=== PATIENT | male | born 1955 | race Caucasian/White ===

== ENCOUNTER → 2018-04-25 | Outpatient (CLI) | payer OTHER ==
[~2018-04-25] VITALS: Ht 180.3 cm; Wt 108.9 kg
--- NOTE | ~2018-04-25 | P ---
[facility] [place] [address] PROCEDURE REPORT Name: CONG BURTON Room #: REG [facility]#: [id number] Admission: 04/25/18 Attend Phys: Cm Patton MD Discharge: Date of : 59 Report #: [id number] THIS REPORT FOR: //name// CC: Cm Patton Physician staff GABBY ESPINAL BRIEF HISTORY: The patient is a 63-year-old male with a history of colon polyps for surveillance colonoscopy. PREOPERATIVE DIAGNOSIS: History of colon polyps. POSTOPERATIVE DIAGNOSIS: Mild diverticulosis coli. MEDICATIONS: Deep sedation with propofol per Anesthesia. SPECIMEN: None. ESTIMATED BLOOD LOSS: None. PROCEDURE: Colonoscopy to cecum and terminal ileum. FINDINGS: Prior to propofol sedation, procedure of colonoscopy discussed with the patient as well potential risks and its complications. He indicates he understands and desires to proceed. DESCRIPTION OF PROCEDURE: With the patient in left lateral decubitus position, digital examination was completed, which revealed no abnormalities. Subsequently, the Olympus video colonoscope was introduced in the rectum and advanced under direct vision to the cecum. Done with minimal difficulty. The cecum was identified by the ileocecal valve and the appendiceal orifice. I was able to visualize the distal segment of terminal ileum, which was inspected and noted to be unremarkable. At that point, scope was slowly withdrawn and careful circumferential views obtained, including retroflexing the scope in the ascending colon. Upon slow withdrawal of the scope, the prep was noted to be excellent. The mucosa was within normal limits, normal vascular pattern, normal light reflex. As we withdrew the scope, no neoplastic lesions were seen. Mucosa was within normal limits and no abnormalities were noted until we reached the left colon, in particular the descending colon and sigmoid colon. A couple of small diverticula were seen. There is no endoscopic evidence of diverticulitis. Scope was withdrawn. The patient tolerated the procedure well. CONDITION OF THE PATIENT UPON DISCHARGE: Following procedure, the patient drowsy, arousable and conversant and will be discharged home when fully ambulatory. INSTRUCTIONS TO THE PATIENT AND THE FAMILY AT TIME OF DISCHARGE: No neoplastic [facility] [address] [place] [address] PROCEDURE REPORT Name: CONG BURTON Room #: REG [facility] Remy#: [id number] Admission: 04/25/18 Attend Phys: Cm Patton MD Discharge: Date of : 59 Report #: [id number] lesions seen today. He had 1 small adenoma in the past and there is no family history. We will have him return in 10 years for a screening colonoscopy. <ELECTRONICALLY SIGNED> By: Cm Patton MD 04/25/18 [id number] [id number] Cm Patton MD /nt
== END | disposition home or self-care (01) ==
LOC: GI 06:40
DX: Z12.11 Encounter for screening for malignant neoplasm of colon (principal); Z86.010 Personal history of colon polyps; K57.30 Diverticulosis of large intestine without perforation or abscess without bleeding; Z98.890 Other specified postprocedural states; Z90.49 Acquired absence of other specified parts of digestive tract
CPT/HCPCS: 62110; 62900